=== PATIENT | male | born 1995 | race Caucasian/White ===

== ENCOUNTER 2024-01-05 22:13 | Emergency (ER) | payer OTHER ==
[2024-01-05 22:38] VITALS: BP 150/80
--- NOTE | 2024-01-06 00:34 | ED Physician Documentation ---
History of Present Illness - Stated complaint Stated Complaint: BODY ACHE/BODY PX/NAUSEA - Chief complaint Chief Complaint: General - History obtained from History obtained from: Patient - Additonal information Additional information: HPI from patient. Patient c/o nausea without vomiting, generalized weakness, bifrontal headache. Symptoms were of gradual onset since approximately noon today. No exacerbating factors. He denies dyspnea, cough, abdominal pain. UTD on immunizations. Review of Systems Constitutional: reports: Myalgias, Fatigue. denies: Fever, Chills, Sweats Cardiac: reports: Reviewed and negative Respiratory: reports: Reviewed and negative GI: reports: Nausea. denies: Abdominal Pain, Vomiting Neurologic: reports: Generalized weakness, Headache. denies: Focal weakness, Numbness PD PAST MEDICAL HISTORY - Past Medical History Past Medical History: No - Present Medications Home Medications: Ambulatory Orders Medication Instructions Recorded Confirmed Ondansetron Odt [Zofran Odt] 4 mg TL Q6H PRN #10 tablet 01/06/24 - Allergies Allergies/Adverse Reactions: Allergies Allergy/AdvReac Type Severity Reaction Status Date / Time No Known Drug Allergies Allergy Verified 01/05/24 22:38 - Social History Does the pt smoke?: No Smoking Status: Never smoker - Immunizations Immunizations are current?: Yes PD ED PE NORMAL - Vitals Vital signs reviewed: Yes - General General: Alert and oriented X 3, No acute distress, Well developed/nourished - HEENT HEENT: Moist mucous membranes - Neck Neck: Supple, no meningeal sign - Cardiac Cardiac: RRR, No murmur - Respiratory Respiratory: No respiratory distress, Clear bilaterally Results - Vitals Vitals: Oxygen O2 Source Room air - Labs Labs: Laboratory Tests 01/05/24 23:30 Nasal Adenovirus (PCR) NOT DETECTED Nasal B. parapertussis DNA (PCR) NOT DETECTED Nasal Coronavir 229E PCR NOT DETECTED Nasal Coronavir HKU1 PCR NOT DETECTED Nasal Coronavir NL63 PCR NOT DETECTED Nasal Coronavir OC43 PCR NOT DETECTED Nasal Enterovir/Rhinovir PCR NOT DETECTED Nasal Influenza B PCR NOT DETECTED Nasal Influenza A PCR NOT DETECTED Nasal Parainfluen 1 PCR NOT DETECTED Nasal Parainfluen 2 PCR NOT DETECTED Nasal Parainfluen 3 PCR NOT DETECTED Nasal Parainfluen 4 PCR NOT DETECTED Nasal RSV (PCR) NOT DETECTED Nasal B.pertussis DNA PCR NOT DETECTED Nasal C.pneumoniae (PCR) NOT DETECTED Felipe Human Metapneumo PCR NOT DETECTED Nasal M.pneumoniae (PCR) NOT DETECTED Nasal SARS-CoV-2 (PCR) NOT DETECTED PD Medical Decision Making - ED course Complexity details: reviewed results, re-evaluated patient, considered differential, d/w patient ED course: H+P are suggestive of viral syndrome and no findings on exam to suggest alternative diagnosis. Respiratory PCR panel negative for viruses tested on this panel including COVID, influenza. He is well-appearing and further emergent testing is not indicated at this time. Results d/w patient, return precautions reviewed. He is given 4mg TL zofran and provided rx for same. Departure - Departure Disposition: Home, Self Care Clinical Impression: Viral syndrome Condition: Good Instructions: ED Viral Syndrome Prescriptions: Ondansetron Odt [Zofran Odt] 4 mg TL Q6H PRN #10 tablet PRN Reason: Nausea / Vomiting Comments: Although you tested negative for the viruses on our viral panel (tested with the nasal swab), the description of your symptoms and lack of concerning findings on the physical exam are still highly suggestive of a viral illness. As important is that your symptom description, combined with the unremarkable physical exam, do not suggest an alternative/concerning diagnosis that would need further testing or specific treatment (such as an antibiotic). I have electronically submitted a prescription for ondansetron (antinausea medication) to the [facility] pharmacy in [place]. You were given the first dose this medication in the emergency department. Follow-up with your primary care provider in the next 1 to 2 days for reevaluation if the symptoms do not resolve within that timeframe. Forms: Activity restrictions Discharge Date/Time: 01/06/24 01:22
[2024-01-06 00:35] LABS: B. PARAPERTUSSIS- RESP PCR PAN NOT DETECTED; B. PERTUSSIS- RESP PCR PANEL NOT DETECTED; C. PNEUMONIAE- RESP PCR PANEL NOT DETECTED; CORONAVIRUS 229E-RESP PCR NOT DETECTED; CORONAVIRUS HKU1-RESP PCR NOT DETECTED; CORONAVIRUS NL63-RESP PCR NOT DETECTED; CORONAVIRUS OC43-RESP PCR NOT DETECTED; HUMAN METAPNEUMOVIRUS NOT DETECTED; INFLUENZA A- RESP PCR PANEL NOT DETECTED; INFLUENZA B - RESP PCR PANEL NOT DETECTED; M. PNEUMONIAE- RESP PCR PANEL NOT DETECTED; PARAINFLUENZA VIRUS 1 NOT DETECTED; PARAINFLUENZA VIRUS 2 NOT DETECTED; PARAINFLUENZA VIRUS 3 NOT DETECTED; PARAINFLUENZA VIRUS 4 NOT DETECTED; RHINOVIRUS/ENTEROVIRUS NOT DETECTED; RSV- RESP PCR PANEL NOT DETECTED; SARS-CoV-2 -RESP PCR PANEL NOT DETECTED
[2024-01-06] MEDS: ONDANSETRON ODT 4 MG TABLET TL STA (01:11)
[2024-01-06 01:23] VITALS: O2SAT 98
== END 2024-01-06 01:22 | disposition home or self-care (01) ==
LOC: ED 22:13
DX: B34.9 Viral infection, unspecified (principal)
CPT/HCPCS: 87633; 99283; Q0162

== ENCOUNTER 2024-02-19 13:51 | Outpatient (CLI) | payer OTHER ==
--- NOTE | 2024-02-19 14:31 | Sleep Patient Instructions ---
Sleep Center Visit Summary - Patient Visit Information Reason for Visit: Initial consult for evaluation of sleep disordered breathing and other sleep issues. - Patient Instructions Instructions Attached: Sleep Study Additional Instructions: You will be completing a sleep study, either an in-lab polysomnography (PSG) or home sleep study (HST). You will follow-up in the sleep care office after the sleep study is completed to hear the results and talk about therapy, if needed. You will be called by our office staff to schedule this appointment, but you may contact us with any questions. - Clinic Information Contact: [facility] [address] [place] [address] [email or web address] T: [phone]
--- NOTE | 2024-02-19 14:37 | SLEEP CARE CONSULTATION ---
Information from patient questionnaire entered by Michael Weathers. I have reviewed and concur with the information entered by Michael Weathers. This document represents the service I personally performed and the decisions made by me, Megan Castaneda ARNP. History of Present Illness Service Date and Time: 02/19/2024 1351 Reason for Visit: New patient Chief Complaint: reports: Insomnia, Unrefreshed sleep, Excessive daytime sleepiness, Fatigue Date of Onset: 5MONTHS Usual bedtime: 2130 Time it takes to fall asleep: 4-5 HRS Snores at night: Yes Observed to quit breathing while asleep: No Sleeps alone due to snoring: No Number of times waking at night: 1-2 Reasons for waking at night: reports: Other (UNKNOWN). denies: Choking, Gasping for air Toss, Turn, or Twitch while sleeping: Yes Recalls having dreams: No (sometimes, but rarely remembers anything ) Usually gets out of bed at: 0500 Feels refreshed in the morning: No Morning headache: No Sleepy or fatigued during the day: Yes Ever fallen asleep while driving: No Takes day naps: Yes (after work 3 days a week, for 1-2 hours) Dreams during day naps: No Prior sleep studies: No Additional HPI information: I had the pleasure of seeing JEFERSON AGUAYO today regarding the possibility of him having a sleep disorder. His current complaints are excessive daytime sleepiness, fatigue, insomnia and unrefreshed sleep. He says he is having trouble getting to sleep since about October. He will lay down about 9:30 PM but not fall asleep for 4-5 hours. He is getting about 4 hours of sleep nightly he thinks, sometimes less. He will lay in bed staring at the ceiling and get to sleep eventually. He usually does not wake up much after falling asleep. He does not feel rested when he gets up in the morning. He does take naps for 1-2 hours during day a few times a week. He says years ago his parents did tell him the he snored but no one since then. He currently sleeps alone. - Parasomnia Symptoms Ever been unable to move upon waking from sleep: No Walks in sleep: No Talks in sleep: Yes Ever acted out dreams in sleep: No Ever felt weak in the knees when startled or emotional: Yes (startled, has not fallen to ground) Bothered by creepy, crawly, restless sensations in legs: Yes (has to move, mostly when waking up in morning or sitting still for a time) Problems with memory or concentration: Yes (more concentration than memory; worse with concentration) Subjective Initial D[place] Sleepiness Scale score: 12 (02/17/24) Past Medical History Past Medical History: reports: Other (no significant medical history) Social History The patient's occupation is a AM. Patient is Single and lives in . Have you smoked in the past 12 months: Yes (is vaping) Cigarettes per day (20/pack): 10 Years of smokin Quit date: 11/2023 Smoking Pack Years: 1.5 Alcohol use: Yes Alcohol amount and frequency: 3-4 DRINKS ONLY WEEKENDS Caffeine use: Yes Caffeine amount and frequency: 200-300MG 5DAYS A WEEK Family History Family Hx Sleep Apnea: Father: Snoring, Sibling: Snoring, Grandparent: Snoring Allergies and Home Medications Known drug allergies: No Drug allergies reviewed: Yes Home medication list reviewed: Yes Allergy and home medication list: Allergies No Known Drug Allergies Allergy (Verified 02/17/24 11:17) Home Medications Medication Instructions Recorded Confirmed Last Taken Type No Known Home Medications 02/19/24 02/19/24 Unknown History Review of Systems Weight gain over past 5 years: 15 Cardiovascular: denies: high blood pressure Gastrointestinal: denies: heartburn Neurological: denies: headaches Psychiatric: denies: Attention Deficit Hyperactivity, anxiety, depression Ear/Nose/Throat: reports: wisdom teeth removed (one remains). denies: injury to nose, tonsillectomy Musculoskeletal: reports: joint pain, neck pain, back pain Physical Exam Vital signs obtained and entered by: MICHAEL Ross MA Blood Pressure: 128/77 (RIGHT ARM) Cuff size: regular Heart Rate: 81 O2 Saturation: 98 Height: 5 ft 10 in Weight: 170 lb 3.2 oz Body Mass Index: 24.4 BMI Classification: Normal Neck circumference: 16 Nostrils: patent to airflow Mouth and throat: normal Soft palate: normal Hard palate: arched Uvula: normal Uvula visualization: 100% Mallampati Class I Tongue: enlarged in size with teeth [place] on lateral edges Tonsils: 1+ Neck: normal w/o lymphadenopathy or thyromegaly Heart: regular rate and rhythm Lungs: clear bilaterally Impression and Plan 1. Suspected Obstructive Sleep Apnea-Hypopnea Syndrome, as suggested by a history of irregular snoring, unrefreshed sleep, cognitive impairment, and excessive daytime sleepiness. He does appear to possibly have some sleep-onset insomnia as well. Narrow oropharynx and obesity are common predisposing factors for obstructive sleep apnea-hypopnea syndrome. I recommend proceeding to polysomnography to confirm the diagnosis and to assess severity. If the patient has significant sleep disordered breathing, a manual CPAP titration study will also be performed to find the optimal treatment pressure. I informed the patient of what the sleep studies involve and after some discussion, obtained agreement to proceed. The pathophysiology of obstructive sleep apnea-hypopnea syndrome was discussed with the patient and health risks of cardiovascular and cerebrovascular disease if not treated. Risks of drowsy driving discussed in detail and patient advised to avoid long distance driving and to pull up hand at the first sign of drowsiness. Patient agreed to plan. * Schedule polysomnography. * Avoid long distance driving or driving when feeling sleepy. * Avoid alcohol, sedative and muscle relaxant around bedtime. * Review instructions provided by trained office staff on how to prepare for the sleep study. * Return for follow-up after sleep study completed. Plan: PSG Visit Type: In Office Time Spent with Patient (minutes): 30 Provider Statement: I spent 100% of the Face to Face Visit with the patient with greater than 50% spent counseling the patient and coordination of care.
[2024-02-19 14:42] VITALS: BP 128/77; O2SAT 98
== END 2024-02-19 13:52 | disposition home or self-care (01) ==
LOC: SC 13:51
PROVIDERS: ATTEND Nurse Practitioner Family
DX: G47.10 Hypersomnia, unspecified (principal); R06.83 Snoring; G47.8 Other sleep disorders; R41.89 Other symptoms and signs involving cognitive functions and awareness
CPT/HCPCS: 99203; 99212